=== PATIENT | male | born 1985 | race Hispanic/Latino ===

== ENCOUNTER 2018-05-04 21:24 | Emergency (ER) | payer BC, SELFPAY ==
--- NOTE | 2018-05-04 22:26 | EDPHYS ---
Physician Documentation [facility] Name: Sedrick Card Age: 32 yrs Sex: Male : 1985 Arrival Date: 05/04/2018 Time: 21:31 Bed 14 Private MD: ED Physician Deshaun Campa HPI: 05/04 21:58 This 32 yrs old Male presents to ER via Ambulatory with complaints of Sore cp Throat, Ear Pain. 21:58 The patient presents with sore throat. The patient describes throat pain as constant. cp Onset: The symptoms/episode began/occurred yesterday. Severity of symptoms: in the emergency department the symptoms are unchanged, despite home interventions. Associated signs and symptoms: Pertinent positives: cough, earache, Pertinent negatives diarrhea, dysphagia, fever, headache, vomiting. Historical: - Allergies: 21:42 No Known Allergies; la1 - Home Meds: 21:42 None [Active]; la1 - PMHx: 21:42 None; la1 - PSHx: 21:42 None; la1 - Immunization history:: Adult Immunizations up to date. - Social history:: Smoking status: Patient/guardian denies using tobacco. - Ebola Screening: : No symptoms or risks identified at this time. ROS: 22:00 Eyes: Negative for injury, pain, redness, and discharge. cp 22:00 Constitutional: Negative for body aches, chills, fever, poor PO intake. 22:00 ENT: Positive for ear pain, sore throat, Negative for drainage from ear(s), difficulty swallowing, difficulty handling secretions. 22:00 Neck: Negative for pain with movement, pain at rest, stiffness. 22:00 Respiratory: Positive for cough, Negative for shortness of breath, wheezing. 22:00 Abdomen/GI: Negative for abdominal pain, vomiting, diarrhea, constipation. 22:00 Skin: Negative for cellulitis, rash. 22:00 Neuro: Negative for headache. 22:00 All other systems are negative. Exam: 22:01 Head/Face: Normocephalic, atraumatic. cp 22:01 Constitutional: The patient appears in no acute distress, alert, awake, non-toxic, well developed, well nourished. 22:01 Eyes: Periorbital structures: appear normal, Conjunctiva: normal, no exudate, no injection, Lids and lashes: appear normal, bilaterally. 22:01 ENT: External ear(s): are unremarkable, Ear canal(s): are normal, clear, TM's: bulging, is not appreciated, bilaterally, dullness, bilaterally, erythema, is not appreciated, bilaterally, Nose: is normal, Mouth: Lips: moist, Oral mucosa: pink and intact, moist, Posterior pharynx: is normal, airway is patent, Airway: no evidence of obstruction, patent, Tonsils: no enlargement, no exudate, Uvula: midline, swelling, is not appreciated, erythema, that is mild. 22:01 Neck: ROM/movement: is normal, is supple, without pain, no range of motions limitations, no meningismus, no nuchal rigidity, Lymph nodes: no appreciated lymphadenopathy. 22:01 Chest/axilla: Inspection: normal, Palpation: is normal, no crepitus, no tenderness. 22:01 Cardiovascular: Rate: normal, Rhythm: regular. 22:01 Respiratory: the patient does not display signs of respiratory distress, Respirations: normal, no use of accessory muscles, no retractions, no splinting, no tachypnea, labored breathing, is not present, Breath sounds: are clear throughout, no decreased breath sounds, no stridor, no wheezing. 22:01 Abdomen/GI: Exam negative for discomfort, distension, guarding, Inspection: abdomen appears normal. 22:01 Skin: cellulitis, is not appreciated, no rash present. Vital Signs: 21:42 BP 138 / 71; Pulse 95; Resp 16; Temp 99.5(O); Pulse Ox 100% on R/A; Weight 122.47 kg; la1 Height 5 ft. 8 in. (172.72 cm); 22:20 BP 128 / 73; Pulse 93; Resp 17 S; Pulse Ox 100% on R/A; cc3 21:42 Body Mass Index 41.05 (122.47 kg, 172.72 cm) la1 MDM: 21:54 Patient medically screened. cp 22:00 Differential diagnosis: bronchitis, group A strep tonsillitis, mononucleosis, cp peritonsillar abscess pharyngitis. 22:25 Data reviewed: vital signs, nurses notes, lab test result(s), and as a result, I will cp discharge patient. 22:25 Counseling: I had a detailed discussion with the patient and/or guardian regarding: the cp historical points, exam findings, and any diagnostic results supporting the discharge/admit diagnosis, lab results, to return to the emergency department if symptoms worsen or persist or if there are any questions or concerns that arise at home. 05/04 21:41 Order name: Strep la1 05/04 21:41 Order name: Flu; Complete Time: 22:23 la1 05/04 22:24 Interpretation: Reviewed. cp 05/04 21:42 Order name: Group A Streptococcus Rapid Sc; Complete Time: 22:23 EDMS 12 22:24 Interpretation: Reviewed. cp 05/04 22:06 Order name: Throat Culture EDMS Administered Medications: No medications were administered Disposition: 05/04/18 22:25 Discharged to Home. Impression: Cough, Otitis media, unspecified, bilateral, Acute pharyngitis. - Condition is Stable. - Discharge Instructions: Pharyngitis, Sore Throat, Cough, Adult. - Prescriptions for Amoxicillin 875 mg Oral Tablet - take 1 tablet by ORAL route every 12 hours for 10 days; 20 tablet. Ibuprofen 800 mg Oral Tablet - take 1 tablet by ORAL route every 8 hours As needed take with food; 30 tablet. Tessalon Perles 100 mg Oral Capsule - take 1 capsule by ORAL route every 8 hours As needed; 20 capsule. - Medication Reconciliation Form, Thank You Letter, Antibiotic Education, Prescription Opioid Use form. - Follow up: Private Physician; When: 2 - 3 days; Reason: Recheck today's complaints. - Problem is new. - Symptoms are unchanged. Addendum: 05/15/2018 10:53 Co-signature as Attending Physician, Deshaun Campa MD I agree with the assessment and c rodriguez plan of care. Signatures: Dispatcher [employer] EDUT Deshaun Campa MD MD cha Attema, Lee RN RN la1 Deshaun Adrian PA PA cp Cordel, Charlene cc3 Corrections: (The following items were deleted from the chart) 05/04 22:35 22:25 05/04/2018 22:25 Discharged to Home. Impression: Cough; Otitis media, cc3 unspecified, bilateral; Acute pharyngitis. Condition is Stable. Forms are Medication Reconciliation Form, Thank You Letter, Antibiotic Education, Prescription Opioid Use. Follow up: Private Physician; When: 2 - 3 days; Reason: Recheck today's complaints. Problem is new. Symptoms are unchanged. cp
--- NOTE | 2018-05-04 22:26 | ER ---
Nurse's Notes [facility] Name: Sedrick Card Age: 32 yrs Sex: Male : 1985 Arrival Date: 05/04/2018 Time: 21:31 Bed 14 Private MD: Diagnosis: Cough;Otitis media, unspecified, bilateral;Acute pharyngitis Presentation: 05/04 21:41 Presenting complaint: Patient states: cough, sore throat, body aches for one day. la1 Transition of care: patient was not received from another setting of care. Onset of symptoms was May 04, 2018. Risk Assessment: Do you want to hurt yourself or someone else? Patient reports no desire to harm self or others. Initial Sepsis Screen: Does the patient meet any 2 criteria? No. Patient's initial sepsis screen is negative. Does the patient have a suspected source of infection? No. Patient's initial sepsis screen is negative. Care prior to arrival: None. 21:41 Method Of Arrival: Ambulatory la1 21:41 Acuity: BANDAR 4 la1 Triage Assessment: 21:50 General: Appears in no apparent distress. comfortable, Behavior is calm, cooperative, cc3 appropriate for age. Historical: - Allergies: 21:42 No Known Allergies; la1 - Home Meds: 21:42 None [Active]; la1 - PMHx: 21:42 None; la1 - PSHx: 21:42 None; la1 - Immunization history:: Adult Immunizations up to date. - Social history:: Smoking status: Patient/guardian denies using tobacco. - Ebola Screening: : No symptoms or risks identified at this time. Screenin:50 Abuse screen: Denies threats or abuse. Denies injuries from another. Nutritional cc3 screening: No deficits noted. Tuberculosis screening: No symptoms or risk factors identified. Fall Risk Ambulatory Aid- None/Bed Rest/Nurse Assist (0 pts). Gait- Normal/Bed Rest/Wheelchair (0 pts) Mental Status- Oriented to own ability (0 pts). Assessment: 21:50 General: Appears in no apparent distress. comfortable, Behavior is calm, cooperative, cc3 appropriate for age. Pain: Complains of pain in ear and throat. Neuro: Level of Consciousness is awake, alert, obeys commands, Oriented to person, place, time, situation, Appropriate for age. Cardiovascular: Denies chest pain. Respiratory: Airway is patent Respiratory effort is even, unlabored, Respiratory pattern is regular, symmetrical, Breath sounds are clear bilaterally. GI: Abdomen is round non-distended. : No signs and/or symptoms were reported regarding the genitourinary system. EENT: Throat is clear with gag reflex present. Derm: No signs and/or symptoms reported regarding the dermatologic system. Musculoskeletal: Circulation, motion, and sensation intact. Range of motion: intact in all extremities. 22:30 Reassessment: Patient appears in no apparent distress at this time. Patient and/or cc3 family updated on plan of care and expected duration. Pain level reassessed. Patient is alert, oriented x 3, equal unlabored respirations, skin warm/dry/pink. KANE Adrian discharged the patient home with prescription given. No IV cannula in situ. Patient left ER vitally stable and ambulatory. Vital Signs: 21:42 BP 138 / 71; Pulse 95; Resp 16; Temp 99.5(O); Pulse Ox 100% on R/A; Weight 122.47 kg; la1 Height 5 ft. 8 in. (172.72 cm); 22:20 BP 128 / 73; Pulse 93; Resp 17 S; Pulse Ox 100% on R/A; cc3 21:42 Body Mass Index 41.05 (122.47 kg, 172.72 cm) la1 ED Course: 21:31 Patient arrived in ED. ag3 21:42 Triage completed. la1 21:42 Arm band placed on left wrist. la1 21:49 Cheyanne Nieves is Primary Nurse. cc3 21:50 Patient has correct armband on for positive identification. Bed in low position. Call cc3 light in reach. Side rails up X 1. Pulse ox on. NIBP on. 21:53 Deshaun Adrian PA is PHCP. cp 21:53 Deshaun Campa MD is Attending Physician. cp 22:30 No provider procedures requiring assistance completed. Patient did not have IV access cc3 during this emergency room visit. Administered Medications: No medications were administered Outcome: 22:25 Discharge ordered by . cp 22:30 Discharged to home ambulatory. cc3 22:30 Condition: stable 22:30 Discharge instructions given to patient, Instructed on discharge instructions, follow up and referral plans. medication usage, Demonstrated understanding of instructions, follow-up care, medications, Prescriptions given X 3. 22:35 Patient left the ED. cc3 Signatures: Carlos Oneill RN RN la1 Deshaun Adrian PA PA cp Cordel, Charlene cc3 Lety Pierre3
== END 2018-05-04 22:35 | disposition home or self-care (01) ==
LOC: ER 21:24
DX: H66.93 Otitis media, unspecified, bilateral (principal); J02.9 Acute pharyngitis, unspecified
CPT/HCPCS: 87070; 87081; 87804; 99283